=== PATIENT | male | born 1995 ===

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

== ENCOUNTER → 2017-03-02 | Outpatient (CLI) | payer OTHER ==
--- NOTE | 2017-03-03 03:21 | DIAGNOSTIC IMAGING REPORT ---
MRI OF THE LUMBAR SPINE WITHOUT IV CONTRAST CLINICAL HISTORY: Low back pain and left lower extremity colopathy. COMPARISON STUDY: Radiographs of the lumbar spine dated 11/19/2016. TECHNIQUE: MRI of the lumbar spine is performed utilizing various T1 and T2 weighted sequences in the axial and sagittal planes. IV contrast was not ministered for this examination. FINDINGS: Lumbar spine: Vertebral body height and alignment are maintained throughout the lumbar spine. Normal marrow signal intensity is preserved throughout the visualized bony structures. The transverse and spinous processes are intact as imaged. There is no evidence of spondylolysis. A hemangioma is suggested in the body of L1. No destructive bony lesion is seen. Intervertebral discs: Mild degenerative disc desiccation and loss of height is seen at L2-L3. The remaining discs are normal in height and signal intensity. Spinal cord: The visualized spinal cord is normal in morphology and signal intensity. The conus medullaris terminates at the T12-L1 interspace. The nerve roots of the cauda equina are normal in morphology. L1-L2: Unremarkable. L2-L3: There is minimal posterior disc bulge with annular fissure. There is no significant acquired compromise of the central canal. The neural foramina are patent. L3-L4: Unremarkable. L4-L5: Unremarkable. L5-S1: Unremarkable. Sacrum: The visualized sacrum is normal in morphology and signal intensity. Soft tissues: The paraspinous soft tissues are normal in appearance. The partially imaged retroperitoneal structures are grossly normal but incompletely evaluated. IMPRESSION: 1. There is no disc herniation, central canal stenosis, or significant neural foraminal narrowing seen throughout the lumbar spine. 2. No destructive bony process is seen. 3. Mild disc disease at L2-L3 as above. See discussion for detailed level by level analysis. Dictated: 03/02/2017 9:55 PM Transcribed: 03/03/2017 3:20 AM [email or web address] Electronically signed by: Joni Moreno M.D. 03/03/2017 1:14 PM Dictated Date/Time: 03/02/2017 9:55 PM
== END | disposition home or self-care (01) ==
LOC: C.MRI 20:36
PROVIDERS: ATTEND Family Medicine
DX: M54.5 Low back pain (principal)